=== PATIENT | female | born 1940 | race Caucasian/White ===

== ENCOUNTER 2017-07-16 12:56 | Emergency (ER) | payer MEDICARE, BC ==
[2017-07-16 13:15] VITALS: BP 138/53
--- NOTE | 2017-07-16 13:41 | UC ---
Ear Complaint HPI - HPI Summary HPI Summary: R ear pain starting this morning, woke with pain. Has had mild nasal congestion , feels like a cold coming on. Pain is now resolved, but pt has hx of ear infections and is flying on a plane tomorrow, worried sx will worsen. Denies fever or drainage. - History of Current Complaint Chief Complaint: UCEar Stated Complaint: EAR PAIN Time Seen by Provider: 07/16/17 13:16 Hx Obtained From: Patient ?: No Onset/Duration: Sudden Onset, Resolved Severity Initially: Moderate Severity Currently: None Aggravating Factors: Nothing Alleviating Factors: Nothing Associated Signs/Symptoms: Positive: URI Symptoms - Allergies/Home Medications Allergies/Adverse Reactions: Allergies Allergy/AdvReac Type Severity Reaction Status Date / Time Atropine [From Lomotil] Allergy HEADACHES Verified 07/16/17 13:15 Diphenoxylate [From Lomotil] Allergy HEADACHES Verified 07/16/17 13:15 Sulfa Drugs Allergy HEADACHES Verified 07/16/17 13:15 ARTIFICIAL SWEETNERS Allergy HEADACHES Uncoded 07/16/17 13:15 Home Medications: Home Medications Cetirizine* [ZyrTEC 10 MG TAB*] 10 mg PO BEDTIME 07/16/17 [History Confirmed 05/23] PMH/Surg Hx/FS Hx/Imm Hx Cancer History: Breast Cancer - Surgical History Surgical History: Yes Surgery Procedure, Year, and Place: Rt MASTECTOMY- 1999, TONSILECTOMY-1941; HYSTERECTOMY-1969; Rt(?) SIDE OVARY REMOVED-1979 - Family History Known Family History: Positive: Hypertension - Social History Occupation: Retired Alcohol Use: Daily Substance Use Type: None Smoking Status (MU): Never Smoked Tobacco Review of Systems Constitutional: Negative Skin: Negative Eyes: Negative ENT: Ear Ache, Nasal Discharge Respiratory: Negative Cardiovascular: Negative Gastrointestinal: Negative Genitourinary: Negative Motor: Negative Neurovascular: Negative Musculoskeletal: Negative Neurological: Negative Psychological: Negative Is Patient Immunocompromised?: No All Other Systems Reviewed And Are Negative: Yes Physical Exam Triage Information Reviewed: Yes Appearance: Well-Appearing, No Pain Distress, Well-Nourished Vital Signs: Initial Vital Signs Temp 99.1 F 07/16/17 13:10 Pulse 62 07/16/17 13:10 Resp 16 07/16/17 13:10 BP 138/53 07/16/17 13:10 Pulse Ox 99 07/16/17 13:10 Vital Signs Reviewed: Yes Eye Exam: Normal Eyes: Positive: Conjunctiva Clear ENT: Positive: Normal ENT inspection, Hearing grossly normal, Pharynx normal, Nasal congestion, TMs normal. Negative: TM bulging, TM dull, TM red Dental Exam: Normal Neck exam: Normal Neck: Positive: Supple, Nontender, No Lymphadenopathy Respiratory Exam: Normal Respiratory: Positive: Chest non-tender, Lungs clear, Normal breath sounds, No respiratory distress, No accessory muscle use Cardiovascular Exam: Normal Cardiovascular: Positive: RRR, No Murmur Musculoskeletal Exam: Normal Neurological Exam: Normal Psychological Exam: Normal Skin Exam: Normal Ear Complaint Course/Dx - Differential Dx/Diagnosis Provider Diagnoses: R serous otitis Discharge - Discharge Plan Condition: Stable Disposition: HOME Patient Education Materials: Serous Otitis Media (ED) Referrals: Noemi Hidalgo MD [Primary Care Provider] - Additional Instructions: Most of the time fluid in the ear resolves without difficulty. If you have fever , severe pain, or drainage from the ear, please get seen again promptly.
== END 2017-07-16 13:40 | disposition home or self-care (01) ==
LOC: UCEAST 12:56
DX: H65.91 Unspecified nonsuppurative otitis media, right ear (principal); R09.81 Nasal congestion; Z85.3 Personal history of malignant neoplasm of breast; Z88.2 Allergy status to sulfonamides
CPT/HCPCS: 99211; G0463

== ENCOUNTER 2018-12-31 09:42 | Emergency (ER) | payer MEDICARE, OTHER ==
[2018-12-31 12:30] VITALS: BP 134/72
--- NOTE | 2018-12-31 12:35 | ED ---
Lower Extremity - HPI Summary HPI Summary: Patient is an 78-year-old female presents to the ED with right knee, behind the knee, calf pain with radiation of the pain to the R lateral upper leg. Sxs began a few days ago and have persisted. She denies taking anything over-the- counter for relief. Denies any numbness or tingling. Denies any color temperature changes. She's never had a DVT in the past. She is not currently on blood thinners. - History of Current Complaint Chief Complaint: EDExtremityLower Stated Complaint: RT LEG PAIN/DR. HORTON SAID NEEDS US PER PT Time Seen by Provider: 12/31/18 09:53 Hx Obtained From: Patient Onset of Pain: Hours Onset/Duration: Hours Severity Initially: Moderate Severity Currently: Moderate Pain Intensity: 2 Pain Scale Used: 0-10 Numeric Timing: Constant Location: Is Discrete @ - right lower extremity pain Character Of Pain: Aching Associated Signs And Symptoms: Negative: Swelling, Redness, Bruising, Fever, Weakness Aggravating Factor(s): Standing, Ambulation Alleviating Factor(s): Rest Able to Bear Weight: No - Risk Factors Gout Risk Factors: Negative - Allergies/Home Medications Allergies/Adverse Reactions: Allergies Allergy/AdvReac Type Severity Reaction Status Date / Time atropine Allergy Headache Verified 12/31/18 09:51 diphenoxylate Allergy Headache Verified 12/31/18 09:51 Sulfa (Sulfonamide Allergy Headache Verified 12/31/18 09:51 Antibiotics) ARTIFICIAL SWEETNERS Allergy HEADACHES Uncoded 12/31/18 09:51 PMH/Surg Hx/FS Hx/Imm Hx Previously Healthy: Yes Endocrine/Hematology History: Denies: Hx Diabetes, Hx Thyroid Disease Cardiovascular History: Denies: Hx Hypertension, Hx Pacemaker/ICD Respiratory History: Denies: Hx Asthma, Hx Chronic Obstructive Pulmonary Disease (COPD) GI History: Denies: Hx Ulcer History: Denies: Hx Dialysis, Hx Renal Disease Musculoskeletal History: Reports: Hx Osteoporosis Sensory History: Denies: Hx Hearing Aid Neurological History: Reports: Hx Headaches Psychiatric History: Denies: Hx Panic Disorder - Cancer History Cancer Type, Location and Year: right BREAST Hx Chemotherapy: Yes - 1999 RIGHT Hx Radiation Therapy: No - Surgical History Surgery Procedure, Year, and Place: Rt MASTECTOMY- 1999, TONSILECTOMY-1941; HYSTERECTOMY-1969; Rt(?) SIDE OVARY REMOVED-1979. [facility] - Immunization History Hx Pertussis Vaccination: No Immunizations Up to Date: Yes Infectious Disease History: No Infectious Disease History: Denies: Hx Clostridium Difficile, Hx Hepatitis, Hx Human Immunodeficiency Virus (HIV), Hx of Known/Suspected MRSA, Hx Shingles, Hx Tuberculosis, Hx Known/ Suspected VRE, Hx Known/Suspected VRSA, History Other Infectious Disease, Traveled Outside the [place] in Last 30 Days - Family History Known Family History: Positive: Hypertension - Social History Occupation: Unemployed Lives: With Family Alcohol Use: Daily Hx Substance Use: No Substance Use Type: Reports: None Smoking Status (MU): Never Smoked Tobacco Review of Systems Constitutional: Negative Negative: Fever, Chills, Fatigue, Skin Diaphoresis Negative: Palpitations, Chest Pain Negative: Shortness Of Breath, Cough Positive: Myalgia - right knee, calf pain, R lateral leg pain. Negative: Arthralgia Skin: Negative All Other Systems Reviewed And Are Negative: Yes Physical Exam Triage Information Reviewed: Yes Vital Signs On Initial Exam: Initial Vitals Temp Pulse Resp BP Pulse Ox 97.7 F 77 15 129/76 98 12/31/18 09:48 12/31/18 09:48 12/31/18 09:48 12/31/18 09:48 12/31/18 09:48 Vital Signs Reviewed: Yes Appearance: Positive: Well-Appearing, Well-Nourished Skin: Positive: Warm, Skin Color Reflects Adequate Perfusion Head/Face: Positive: Normal Head/Face Inspection Eyes: Positive: EOMI, LAUYRN, Conjunctiva Clear Neck: Positive: Supple, No Lymphadenopathy Cardiovascular: Positive: RRR, Pulses are Symmetrical in both Upper and Lower Extremities Musculoskeletal: Positive: Strength/ROM Intact Neurological: Positive: Sensory/Motor Intact Psychiatric: Positive: Affect/Mood Appropriate AVPU Assessment: Alert Diagnostics - Vital Signs Vital Signs Temp Pulse Resp BP Pulse Ox 12/31/18 12:29 98.7 F 76 16 134/72 99 12/31/18 09:48 97.7 F 77 15 129/76 98 - Laboratory Lab Statement: Any lab studies that have been ordered have been reviewed, and results considered in the medical decision making process. Lower Extremity Course/Dx - Course Course Of Treatment: During his course of treatment, the patient's evaluated for possible DVT. No evidence of swelling, erythema, ecchymosis, palpable cord. Symptoms are not worse with plantar flexion or dorsiflexion. Symptoms are aggravated with standing or ambulating, better with rest. Ultrasound negative for DVT. This was explained to patient. She is okay for discharge at this time and I have encouraged naproxen or Tylenol for discomfort. - Diagnoses Differential Diagnosis/HQI/PQRI: Positive: DVT, Sprain, Strain Provider Diagnoses: Right leg pain, Cramp and spasm Discharge - Sign-Out/Discharge Documenting (check all that apply): Patient Departure Patient Received Moderate/Deep Sedation with Procedure: No - Discharge Plan Condition: Stable Disposition: HOME Referrals: Noemi Hidalgo MD [Primary Care Provider] - Additional Instructions: No evidence of DVT - Billing Disposition and Condition Condition: STABLE Disposition: Home
== END 2018-12-31 12:29 | disposition home or self-care (01) ==
LOC: ED 09:42
DX: M25.561 Pain in right knee (principal); M71.21 Synovial cyst of popliteal space [Baker], right knee; R25.2 Cramp and spasm; Z88.2 Allergy status to sulfonamides; Z85.3 Personal history of malignant neoplasm of breast; R60.0 Localized edema
CPT/HCPCS: 99282

== ENCOUNTER 2019-06-02 14:57 | Emergency (ER) | payer MEDICARE, OTHER ==
--- OUTSIDE RECORDS SUMMARY | 2019-06-02 15:13 | XMS REPORT | Continuity of Care Document ---
:1940 External Reference #:[id number] Author Name Kyara Duncan MD (transmitted by agent of provider Maria G Eddy) Address 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 Alprazolam Unknown 0.5mg Tablets Zyrtec Allergy 1 by mouth every Unknown 10mg Tablets day Vitamin D 1 by mouth every Unknown (Cholecalciferol) day 1000Unit Capsules Immunizations Description No Information Available Vital Signs Date Vital Result Comment 05/10/2019 11:33am Height 61 inches 5'1" Weight 128.00 lb Heart Rate 67 /min BP Systolic 127 mmHg BP Diastolic 65 mmHg O2 % BldC Oximetry 98 % BMI (Body Mass Index) 24.2 kg/m2 03/22/2018 2:38pm Height 61 inches 5'1" Weight 125.00 lb Heart Rate 76 /min BP Systolic 120 mmHg BP Diastolic 60 mmHg O2 % BldC Oximetry 96 % BMI (Body Mass Index) 23.6 kg/m2 Last Menstrual Period [id number] Results Description No Information Available Procedures Date Code Description Status 03/12/2015 74151344 Mammogram Completed Medical Devices Description No Information Available Encounters Description No Information Available Assessments Date Code Description Provider 05/10/2019 L73.2 Hidradenitis suppurativa Kyara Duncan MD 05/10/2019 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
[2019-06-02 16:10] LABS: Urine Appearance Cloudy; Urine Bacteria Absent (Absent); Urine Bilirubin Negative (Negative); Urine Blood 3+ (Negative); Urine Glucose Negative (Negative); Urine Ketones Negative (Negative); Urine Nitrite Negative (Negative); Urine Protein 2+(100 mg/dL) (Negative); Urine Red Blood Cell 3+(>10/hpf) (Absent); Urine Specific Gravity 1.017 (1.010-1.030); Urine Squamous Epithelial Cell Present (Absent); Urine Urobilinogen Negative (Negative); Urine White Blood Cell Trace(0-5/hpf) (Absent)
[2019-06-02 16:17] LABS: ABS Lymphocytes 1.8 10^3/ul (1.0-4.8); ABS Monocytes 0.4 10^3/ul (0-0.8); ABS Neutrophils 1.9 10^3/ul (1.5-7.7); Hematocrit 32 % (35-47); Hemoglobin 10.8 g/dL (12.0-16.0); Lymphocyte % 43.2 %; Mean Corpuscular HGB Conc 34 g/dL (31-36); Mean Corpuscular Hemoglobin 32 pg (27-31); Mean Corpuscular Volume 94 fL (80-97); Mean Platelet Volume 8.4 fL (7.4-10.4); Platelet Count 282 10^3/uL (150-450); Red Blood Count 3.39 10^6 /uL (3.70-4.87); Red Cell Distribution Width 18 % (10-15); White Blood Count 4.2 10^3/uL (3.5-10.8)
[2019-06-02 16:18] LABS: Urine Color Red
[2019-06-02 16:37] LABS: Albumin 4.2 g/dL (3.2-5.2); Albumin/Globulin Ratio 1.8 (1-3); BUN/Creatinine Ratio 24.5 (8-20); C Reactive Protein 1.94 mg/L (<8.01); EGFR African American 65.9 (>60); EGFR Non-African American 54.5 (>60); Globulin 2.3 g/dL (2-4); Potassium 4.2 mmol/L (3.5-5.0); Total Bilirubin 0.7 mg/dL (0.2-1.0); Total Protein 6.5 g/dL (6.4-8.9)
--- NOTE | 2019-06-02 17:18 | ED ---
Abdominal Pain/Female - HPI Summary HPI Summary: This patient is a 79 year old F with a history of metastatic breast cancer, history of kidney stones the past, presenting to [facility] with a chief complaint of left sided and hematuria, abdominal pain since 0300 in morning 06/02/19. Patient reports hematuria of dark red blood noticed this morning. Pt reports slight discomfort and and urgency but no dysuria. Hx microscopic hematuria, kidney stone. Denies nausea, vomiting, fevers, diarrhea. Takes Advil for pain at home. She called oncology who instructed her to come to the ED for further evaluation. Pt reports she has metastasized breast cancer for which she will receive chemotherapy called Doxil in June. - History of Current Complaint Chief Complaint: EDAbdPain Stated Complaint: ABD PAIN/BLODD IN URINE PER PT Time Seen by Provider: 06/02/19 16:41 Hx Obtained From: Patient Onset/Duration: Lasting Hours, Still Present Timing: Constant Severity Currently: Mild Pain Intensity: 2 Pain Scale Used: 0-10 Numeric Aggravating Factor(s): Nothing Alleviating Factor(s): Nothing Associated Signs and Symptoms: Positive: Other: - hematuria, urgency of urinating. Negative: Fever, Nausea, Vomiting, Diarrhea Allergies/Adverse Reactions: Allergies Allergy/AdvReac Type Severity Reaction Status Date / Time lactose Allergy Severe GI Upset Verified 06/02/19 15:04 atropine [From Lomotil] Allergy Intermediate Headache Verified 06/02/19 15:04 diphenoxylate [From Lomotil] Allergy Intermediate Headache Verified 06/02/19 15: 04 monosodium glutamate Allergy Intermediate Headache Verified 06/02/19 15:04 Sulfa (Sulfonamide Allergy Intermediate Headache Verified 06/02/19 15:04 Antibiotics) ARTIFICIAL SWEETNERS Allergy Severe HEADACHES Uncoded 06/02/19 15:04 PMH/Surg Hx/FS Hx/Imm Hx Endocrine/Hematology History: Denies: Hx Diabetes, Hx Thyroid Disease Cardiovascular History: Denies: Hx Hypertension, Hx Pacemaker/ICD Respiratory History: Denies: Hx Asthma, Hx Chronic Obstructive Pulmonary Disease (COPD) GI History: Denies: Hx Ulcer History: Denies: Hx Dialysis, Hx Renal Disease Musculoskeletal History: Reports: Hx Osteoporosis Sensory History: Denies: Hx Hearing Aid Neurological History: Reports: Hx Headaches Psychiatric History: Denies: Hx Panic Disorder - Cancer History Cancer Type, Location and Year: right BREAST 1999 Hx Chemotherapy: Yes - 1999 RIGHT Hx Radiation Therapy: No - Surgical History Surgery Procedure, Year, and Place: Rt MASTECTOMY- 1999, TONSILECTOMY-1941; HYSTERECTOMY-1969; Rt(?) SIDE OVARY REMOVED-1979. [facility] 07/2018 Infectious Disease History: No Infectious Disease History: Denies: Hx Clostridium Difficile, Hx Hepatitis, Hx Human Immunodeficiency Virus (HIV), Hx of Known/Suspected MRSA, Hx Shingles, Hx Tuberculosis, Hx Known/ Suspected VRE, Hx Known/Suspected VRSA, History Other Infectious Disease, Traveled Outside the [place] in Last 30 Days - Family History Known Family History: Positive: Hypertension - Social History Alcohol Use: Daily Alcohol Amount: 2 glasses wine Hx Substance Use: No Substance Use Type: Reports: None Smoking Status (MU): Never Smoked Tobacco Review of Systems Negative: Fever Positive: Abdominal Pain. Negative: Vomiting, Diarrhea, Nausea Positive: hematuria, urgency All Other Systems Reviewed And Are Negative: Yes Physical Exam - Summary Physical Exam Summary: Constitutional: Well-developed, Well-nourished, Alert. (-) Distressed Skin: Warm, Dry HENT: Normocephalic; Atraumatic Eyes: Conjunctiva normal Neck: Musculoskeletal ROM normal neck. (-) JVD, (-) Stridor, (-) Nuchal rigidity Cardio: Rhythm regular, rate normal, Heart sounds normal; Intact distal pulses; Radial pulses are 2+ and symmetric. (-) Murmur Pulmonary/Chest wall: Effort normal. (-) Respiratory distress, (-) Wheezes, (-) Rales Abd:mild left upper and lower quadrant tenderness, (-) Distension, (-) Guarding , (-) Rebound Musculoskeletal: (-) Edema Lymph: (-) Cervical adenopathy Neuro: Alert, Oriented x3 Psych: Mood and affect Normal Triage Information Reviewed: Yes Vital Signs On Initial Exam: Initial Vitals Temp Pulse Resp BP Pulse Ox 97.6 F 72 14 159/50 98 06/02/19 15:00 06/02/19 15:00 06/02/19 15:00 06/02/19 15:00 06/02/19 15:00 Vital Signs Reviewed: Yes Procedures - Sedation Patient Received Moderate/Deep Sedation with Procedure: No Diagnostics - Vital Signs Vital Signs Temp Pulse Resp BP Pulse Ox 06/02/19 15:00 97.6 F 72 14 159/50 98 - Laboratory Lab Results: Lab Results 06/02/19 06/02/19 06/02/19 Range/Units 15:45 15:59 15:59 WBC 4.2 (3.5-10.8) 10^3/uL RBC 3.39 L (3.70-4.87) 10^6 /uL Hgb 10.8 L (12.0-16.0) g/dL Hct 32 L (35-47) % MCV 94 (80-97) fL MCH 32 H (27-31) pg MCHC 34 (31-36) g/dL RDW 18 H (10-15) % Plt Count 282 (150-450) 10^3/uL MPV 8.4 (7.4-10.4) fL Neut % (Auto) 45.4 % Lymph % (Auto) 43.2 % [place] % (Auto) 9.4 % Eos % (Auto) 1.0 % Baso % (Auto) 1.0 % Absolute Neuts (auto) 1.9 (1.5-7.7) 10^3/ul Absolute Lymphs (auto) 1.8 (1.0-4.8) 10^3/ul Absolute Monos (auto) 0.4 (0-0.8) 10^3/ul Absolute Eos (auto) 0.0 (0-0.6) 10^3/ul Absolute Basos (auto) 0.0 (0-0.2) 10^3/ul Absolute Nucleated RBC 0.0 10^3/ul Nucleated RBC % 0.0 Sodium 140 (135-145) mmol/L Potassium 4.2 (3.5-5.0) mmol/L Chloride 106 (101-111) mmol/L Carbon Dioxide 26 (22-32) mmol/L Anion Gap 8 (2-11) mmol/L BUN 24 (6-24) mg/dL Creatinine 0.98 H (0.51-0.95) mg/dL Est GFR ( Amer) 65.9 (>60) Est GFR (Non-Af Amer) 54.5 (>60) BUN/Creatinine Ratio 24.5 H (8-20) Glucose 105 H (70-100) mg/dL Lactic Acid (0.5-2.0) mmol/L Calcium 9.0 (8.6-10.3) mg/dL Total Bilirubin 0.70 (0.2-1.0) mg/dL AST 19 (13-39) U/L ALT 10 (7-52) U/L Alkaline Phosphatase 49 (34-104) U/L C-Reactive Protein 1.94 (<8.01) mg/L Total Protein 6.5 (6.4-8.9) g/dL Albumin 4.2 (3.2-5.2) g/dL Globulin 2.3 (2-4) g/dL Albumin/Globulin Ratio 1.8 (1-3) Lipase 11 (11.0-82.0) U/L Urine Color Red A Urine Appearance Cloudy Urine pH 5.0 (5-9) Ur Specific [place] 1.017 (1.010-1.030) Urine Protein 2+(100 mg/dl) A (Negative) Urine Ketones Negative (Negative) Urine Blood 3+ A (Negative) Urine Nitrate Negative (Negative) Urine Bilirubin Negative (Negative) Urine Urobilinogen Negative (Negative) Ur Leukocyte Esterase Negative (Negative) Urine WBC (Auto) Trace(0-5/hpf) (Absent) Urine RBC (Auto) 3+(>10/hpf) A (Absent) Ur Squamous Epith Cells Present A (Absent) Urine Bacteria Absent (Absent) Urine Glucose Negative (Negative) 06/02/19 Range/Units 15:59 WBC (3.5-10.8) 10^3/uL RBC (3.70-4.87) 10^6 /uL Hgb (12.0-16.0) g/dL Hct (35-47) % MCV (80-97) fL MCH (27-31) pg MCHC (31-36) g/dL RDW (10-15) % Plt Count (150-450) 10^3/uL MPV (7.4-10.4) fL Neut % (Auto) % Lymph % (Auto) % [place] % (Auto) % Eos % (Auto) % Baso % (Auto) % Absolute Neuts (auto) (1.5-7.7) 10^3/ul Absolute Lymphs (auto) (1.0-4.8) 10^3/ul Absolute Monos (auto) (0-0.8) 10^3/ul Absolute Eos (auto) (0-0.6) 10^3/ul Absolute Basos (auto) (0-0.2) 10^3/ul Absolute Nucleated RBC 10^3/ul Nucleated RBC % Sodium (135-145) mmol/L Potassium (3.5-5.0) mmol/L Chloride (101-111) mmol/L Carbon Dioxide (22-32) mmol/L Anion Gap (2-11) mmol/L BUN (6-24) mg/dL Creatinine (0.51-0.95) mg/dL Est GFR ( Amer) (>60) Est GFR (Non-Af Amer) (>60) BUN/Creatinine Ratio (8-20) Glucose (70-100) mg/dL Lactic Acid 0.5 (0.5-2.0) mmol/L Calcium (8.6-10.3) mg/dL Total Bilirubin (0.2-1.0) mg/dL AST (13-39) U/L ALT (7-52) U/L Alkaline Phosphatase (34-104) U/L C-Reactive Protein (<8.01) mg/L Total Protein (6.4-8.9) g/dL Albumin (3.2-5.2) g/dL Globulin (2-4) g/dL Albumin/Globulin Ratio (1-3) Lipase (11.0-82.0) U/L Urine Color Urine Appearance Urine pH (5-9) Ur Specific [place] (1.010-1.030) Urine Protein (Negative) Urine Ketones (Negative) Urine Blood (Negative) Urine Nitrate (Negative) Urine Bilirubin (Negative) Urine Urobilinogen (Negative) Ur Leukocyte Esterase (Negative) Urine WBC (Auto) (Absent) Urine RBC (Auto) (Absent) Ur Squamous Epith Cells (Absent) Urine Bacteria (Absent) Urine Glucose (Negative) Result Diagrams: 06/02/19 15:59 06/02/19 15:59 Lab Statement: Any lab studies that have been ordered have been reviewed, and results considered in the medical decision making process. - CT Abdomen/Pelvis CT CT Interpretation Completed By: Radiologist Summary of CT Findings: Per radiologist,. 1. THERE IS PROGRESSIVE INFLAMMATORY CHANGE OF THE SMALL BOWEL MESENTERY WHICH LIKELY. REFLECTS PROGRESSION OF THE PERITONEAL METASTATIC DISEASE DESCRIBED ON THE PREVIOUS EXAMINATION GIVEN THE CLINICAL HISTORY. 2. THERE HAS BEEN PROGRESSION OF BILATERAL PLEURAL EFFUSIONS. 3. THERE HAS BEEN INTERVAL RESOLUTION OF THE RIGHT-SIDED HYDRONEPHROSIS. THERE IS AN. EXTRARENAL PELVIS ON THE LEFT. 4. AGAIN NOTED IS OSSEOUS METASTATIC DISEASE. ED Physician has reviewed this imaging report. Re-Evaluation - Re-Evaluation First Eval Re-Evaluation Time: 17:15 Change: Improved - Patient updated on plan, given percocet for pain PRN. Will f/ u w Onc Abdominal Pain Fem Course/Dx - Course Course Of Treatment: 79-year-old female with a history of metastatic cancer on chemotherapy follows with Dr. Espinosa, remote history of kidney stones who presents with hematuria and left-sided abdominal pain. Differential includes kidney stone, cystitis, malignancy-induced hematuria (mass), diverticulitis, metastatic lesions causing pain. Patient denies pelvic pain, urinary symptoms aside from frequency. UA with red blood cells, no bacteria, lower suspicion for UTI or ovarian pathology. CT here shows carcinomatosis consistent with metastatic disease, no obstruction across her pain. No obvious stones, no hydronephrosis. Discuss with oncology, who agrees that the patient can follow up outpatient. Unclear cause of pain, however, secondary to her no metastatic disease or kidney stone that was not visualized, but she has no evidence of hydronephrosis. Given pain medication as needed at home. Patient to return for worsening symptoms, fever or if she is concerned. - Diagnoses Provider Diagnoses: Hematuria, Left sided abdominal pain - Provider Notifications Discussed Care Of Patient With: Aliza Marino Time Discussed With Above Provider: 17:22 Instructed by Provider To: Other - Reviewed lab and CT and will follow up with outpatient so patient can go home. Discharge ED - Sign-Out/Discharge Documenting (check all that apply): Patient Departure - discharge - Discharge Plan Condition: Stable Disposition: HOME Prescriptions: oxyCODONE/Acetamin 5/325 MG* [Percocet 5/325 TAB*] 1 tab PO Q6H PRN 3 Days #12 tab MDD 4 PRN Reason: Pain Patient Education Materials: Hematuria (ED) Referrals: Noemi Hidalgo MD [Primary Care Provider] - 3 Days Additional Instructions: You were seen in the emergency department for abdominal pain and blood in your urine. Your CT scan showed continued metastatic disease but no cause for your pain. If any studies were not completed at the time of discharge you will be called with the relevant results. Please follow up with your primary care doctor in next 2-3 days and return to emergency department for worsening pain, fevers, inability to make urine, or concerning symptoms. It was a pleasure taking care of you today. - Billing Disposition and Condition Condition: STABLE Disposition: Home - Attestation Statements Document Initiated by Stanford: Yes Documenting Scribe: Rebecca Perales Provider For Whom Stanford is Documenting (Include Credential): Dr. Kelly Chilel MD Scribe Attestation: IRebecca, scribed for Dr. Kelly Chilel MD on 06/03/19 at 0950. Scribe Documentation Reviewed: Yes Provider Attestation: The documentation as recorded by the Rebecca nogueira accurately reflects the service I personally performed and the decisions made by me, Dr. Kelly Chilel MD Status of Scribe Document: Viewed
[2019-06-02 18:30] VITALS: BP 165/88
== END 2019-06-02 17:50 | disposition home or self-care (01) ==
LOC: ED 14:57
DX: R10.32 Left lower quadrant pain (principal); R31.9 Hematuria, unspecified; R39.15 Urgency of urination; C50.919 Malignant neoplasm of unspecified site of unspecified female breast; C79.51 Secondary malignant neoplasm of bone; J90 Pleural effusion, not elsewhere classified; Z87.442 Personal history of urinary calculi; Z91.011 Allergy to milk products; Z88.2 Allergy status to sulfonamides; Z88.8 Allergy status to other drugs, medicaments and biological substances; Z91.048 Other nonmedicinal substance allergy status
CPT/HCPCS: 36415; 74176; 80053; 81003; 81015; 83605; 83690; 85025; 86140; 87086; 99282

== ENCOUNTER 2020-12-18 19:36 | Inpatient (IN) ==
[2020-12-18] MEDS ORDERED: NS 0.9% 1000 ml BAG 1,000 ML IV.FLUID IV ONE (19:56)
[2020-12-18] MEDS ORDERED: Piperacillin/Tazobac ADVAN 3.375 GM in NS 0.9% 100 ml BAG 100 ML IVPB ONE (19:56)
[2020-12-18] MEDS ORDERED: Vancomycin 750 MG in NS 0.9% 250 ml 250 ML IVPB SCH (20:00)
[2020-12-18] MEDS ORDERED: Piperacillin/Tazobac 3.375 GM BAG ONE (20:51)
[2020-12-18 22:00] LABS: Urine Appearance Cloudy; Urine Bilirubin Negative (Negative); Urine Blood 1+ (Negative); Urine Color Yellow; Urine Glucose Negative (Negative); Urine Ketones Negative (Negative); Urine Nitrite Negative (Negative); Urine Protein 2+(100 mg/dL) (Negative); Urine Specific Gravity 1.013 (1.002-1.030); Urine Urobilinogen Negative (Negative)
[2020-12-18] MEDS ORDERED: Vancomycin 750 MG in NS 0.9% 250 ML IVPB ONE (22:00)
[2020-12-18 22:06] LABS: Urine Bacteria Absent (Absent); Urine Red Blood Cell 1+(3-5/hpf) (Absent); Urine Squamous Epithelial Cell Present (Absent); Urine White Blood Cell 1+(6-10/hpf) (Absent)
[2020-12-18 22:07] LABS: ABS Eosinophils 0.2 10^3/ul (0-0.6); ABS Lymphocytes 0.9 10^3/ul (1.0-4.8); ABS Monocytes 0.6 10^3/ul (0-0.8); ABS Neutrophils 7.7 10^3/ul (1.5-7.7); Eosinophil % 2.3 %; Hematocrit 25 % (35-47); Hemoglobin 8.3 g/dL (12.0-16.0); Lymphocyte % 9.1 %; Mean Corpuscular HGB Conc 33 g/dL (31-36); Mean Corpuscular Hemoglobin 32 pg (27-31); Mean Corpuscular Volume 96 fL (80-97); Mean Platelet Volume 7.7 fL (7.4-10.4); Platelet Count 373 10^3/uL (150-450); Red Blood Count 2.64 10^6 /uL (3.70-4.87); Red Cell Distribution Width 15 % (10-15); White Blood Count 9.3 10^3/uL (3.5-10.8)
[2020-12-18 22:20] LABS: Activated Partial Thrombo Time 37.2 seconds (26.0-38.0); INR 1.22 (0.82-1.09)
[2020-12-18 22:21] LABS: ALT 13 U/L (7-52); AST 20 U/L (13-39); Albumin 3.4 g/dL (3.2-5.2); Albumin/Globulin Ratio 1.6 (1-3); Alkaline Phosphatase 58 U/L (34-104); Anion Gap 9 mmol/L (2-11); Blood Urea Nitrogen 24 mg/dL (6-24); C Reactive Protein 19.23 mg/L (<8.01); CO2 Carbon Dioxide 22 mmol/L (22-32); Calcium 8.4 mg/dL (8.6-10.3); Chloride 110 mmol/L (101-111); EGFR African American 58.1 (>60); EGFR Non-African American 48.1 (>60); Globulin 2.1 g/dL (2-4); Glucose 100 mg/dL (70-100); Potassium 3.4 mmol/L (3.5-5.0); Sodium 141 mmol/L (135-145); Total Protein 5.5 g/dL (6.4-8.9)
[2020-12-18 22:27] LABS: Troponin I 0.07 ng/mL (<0.03)
[2020-12-19 01:30] LABS: Influenza A Molecular Negative (Negative); Influenza B Molecular Negative (Negative)
[2020-12-19] MEDS ORDERED: Vancomycin per Pharmacy 1 EA NOTE FOLLOW UP SCH (03:00)
[2020-12-19] MEDS: Cefepime 2 GM in Dextrose 2 GM/50 ML BAG IV SCH ×2 (04:01→15:52)
[2020-12-19] MEDS: Enoxaparin 40 MG/0.4 ML SYR SUBCUT SCH (04:01)
[2020-12-19 06:38] LABS: Total Iron Binding Capacity 232 mcg/dL (250-450); Transferrin 166 mg/dL (203-362); Troponin I 0.05 ng/mL (<0.03)
[2020-12-19 06:39] LABS: Blood Urea Nitrogen 22 mg/dL (6-24); CO2 Carbon Dioxide 23 mmol/L (22-32); EGFR African American 50.6 (>60); EGFR Non-African American 41.8 (>60); Glucose 126 mg/dL (70-100); Magnesium 1.5 mg/dL (1.9-2.7); Potassium 3.6 mmol/L (3.5-5.0); Sodium 141 mmol/L (135-145)
[2020-12-19 06:46] LABS: % Iron Saturation 9 % (15-55); Anion Gap 6 mmol/L (2-11); Chloride 112 mmol/L (101-111); Iron < 20 ug/dL (50-212); Unsaturated Iron Binding < 217 ug/dL
[2020-12-19 06:54] LABS: Ferritin 144.1 ng/mL (11-307)
[2020-12-19] MEDS ORDERED: Magnesium Sulfate IV 3 GM in NS 0.9% 100 ml BAG 100 ML IVPB ONE (08:30)
[2020-12-19] MEDS ORDERED: ALPELISIB PO SCH (09:00)
[2020-12-19] MEDS: Azithromycin 500 mg/250 ml NS 500 MG/250 ML BAG IVPB SCH (09:22)
[2020-12-19] MEDS ORDERED: Vancomycin 750 MG in NS 0.9% 250 ML IVPB SCH (21:00)
[2020-12-19] MEDS ORDERED: CALCIUM 500 MG PO SCH (21:00)
[2020-12-19] MEDS ORDERED: Cholecalciferol (VIT D3) 1,000 unit TAB PO SCH (21:00)
[2020-12-19] MEDS ORDERED: GUM PO SCH ×2 (21:00)
[2020-12-19] MEDS ORDERED: VITAMIN C PO SCH (21:00)
[2020-12-20] MEDS: Cefepime 2 GM in Dextrose 2 GM/50 ML BAG IV SCH (05:05)
[2020-12-20 05:38] LABS: ABS Basophils 0.1 10^3/ul (0-0.2); ABS Eosinophils 0.5 10^3/ul (0-0.6); ABS Monocytes 0.5 10^3/ul (0-0.8); ABS Neutrophils 7.3 10^3/ul (1.5-7.7); Eosinophil % 5.6 %; Hematocrit 25 % (35-47); Hemoglobin 8.5 g/dL (12.0-16.0); Lymphocyte % 10.8 %; Mean Corpuscular HGB Conc 34 g/dL (31-36); Mean Corpuscular Hemoglobin 32 pg (27-31); Mean Corpuscular Volume 95 fL (80-97); Mean Platelet Volume 7.9 fL (7.4-10.4); Platelet Count 379 10^3/uL (150-450); Red Blood Count 2.64 10^6 /uL (3.70-4.87); Red Cell Distribution Width 15 % (10-15); White Blood Count 9.4 10^3/uL (3.5-10.8)
[2020-12-20 05:54] LABS: Calcium 7.7 mg/dL (8.6-10.3); EGFR African American 69.8 (>60); EGFR Non-African American 57.7 (>60); Potassium 3.4 mmol/L (3.5-5.0)
[2020-12-20] MEDS ORDERED: Potassium Chlor 20 meq TAB.ER PO ONE (07:54)
[2020-12-20] MEDS: Enoxaparin 40 MG/0.4 ML SYR SUBCUT SCH (08:44)
[2020-12-20] MEDS: Azithromycin 500 mg/250 ml NS 500 MG/250 ML BAG IVPB SCH (08:44)
[2020-12-20 09:11] LABS: Magnesium 2.4 mg/dL (1.9-2.7)
[2020-12-20] MEDS ORDERED: Prochlorperazine 5 mg/ml 2 ml VIAL (10 mg) IV PRN (11:46)
[2020-12-20 15:29] VITALS: BP 152/64
[2020-12-21] MEDS ORDERED: Vancomycin Trough Check NOTE FOLLOW UP ONE (20:30)
== END 2020-12-20 16:45 | disposition home or self-care (01) | DRG 871 ==
LOC: ED 19:36 → MED 12-19 01:43
PROVIDERS: ADMIT Internal Medicine; ATTEND Hospitalist